=== PATIENT | female | born 1965 | race Caucasian/White ===

== ENCOUNTER 2018-01-30 08:49 | Emergency (ER) | payer OTHER ==
[2018-01-30 08:55] VITALS: BP 105/77; PULSE 81; TEMP 98.2; BMI 30.7
[2018-01-30] MEDS ORDERED: IBUPROFEN 400 MG TABLET (FP) PO ONE ×2 (09:56→10:09)
--- NOTE | 2018-01-30 10:03 | PDOC ---
History of Present Illness - General History Source: Patient Exam Limitations: Clinical Condition - History of Present Illness Initial Comments: 01/30/18 09:57 Patient with no sig Past medical history presenting with complain of vaginal bleeding soak in 4-5 packs a day for 3 days. Patient reported LMP January 16 for 5 days and started bleeding again 2 weeks after with cramping lower abdominal pain which has not been improving with Tylenol. Patient has not seen in [facility] in many years and report last past year moderate in 5 years ago. Patient denies dizziness, headache, weakness, nausea, vomiting. Patient denies any other symptoms Timing/Duration: other (3 days) <Abdirahman Islas Chandler - Last Filed: 01/30/18 16:27> <Pamela Mills - Last Filed: 01/30/18 19:34> - General Chief Complaint: Vaginal Sxs Stated Complaint: Vaginal Bleeding Time Seen by Provider: 01/30/18 09:33 Past History - Past Medical History COPD: No - Suicide/Smoking/Psychosocial Hx Smoking History: Never smoked <Abdirahman Islases - Last Filed: 01/30/18 16:27> <Pamela Mills - Last Filed: 01/30/18 19:34> - Past Medical History Allergies/Adverse Reactions: Allergies Allergy/AdvReac Type Severity Reaction Status Date / Time No Known Allergies Allergy Verified 01/30/18 08:55 Home Medications: Ambulatory Orders Ibuprofen 800 mg PO Q8H PRN #20 tablet 01/30/18 Review of Systems - Review of Systems Able to Perform ROS?: Yes Is the patient limited Irish proficient: No Constitutional: No: Chills, Fever, Weakness Respiratory: No: Symptoms reported Cardiac (ROS): No: Symptoms Reported, See HPI, Chest Pain, Edema, Irregular Heart Rate, Lightheadedness, Palpitations, Syncope, Chest Tightness, Other ABD/GI: Yes: Abdominal cramping (intermittent lower abdominal). No: Abdominal Distended, Abd. Pain w/ defecation, Blood Streaked Bowels, Constipated, Diarrhea , Difficulty Swallowing, Nausea, Poor Appetite, Poor Fluid Intake, Rectal Bleeding, Vomiting, Indigestion, Tarry Stools, Other : Yes: See HPI, Other (vaginal bleeding). No: Dysuria, Frequency, Flank Pain , Urgency Musculoskeletal: No: Back Pain, Muscle Pain, Muscle Weakness, Neck Pain Neurological: No: Headache, Unsteady Gait, Dizziness All Other Systems: Reviewed and Negative <Abdirahman Islas - Last Filed: 01/30/18 16:27> *Physical Exam - Vital Signs Last Vital Signs Temp Pulse Resp BP Pulse Ox 98.2 F 81 18 105/77 99 01/30/18 08:52 01/30/18 08:52 01/30/18 08:52 01/30/18 08:52 01/30/18 08:52 - Physical Exam Comments: 01/30/18 10:01 GENERAL: Well developed, well nourished. Awake and alert. No acute distress. CARDIOVASCULAR: Regular rate and rhythm. No murmurs, rubs, or gallops. Distal pulses are 2+ and symmetric. PULMONARY: No evidence of respiratory distress. Lungs clear to auscultation bilaterally. No wheezing, rales or rhonchi. ABDOMINAL: Soft. Non-tender. Non-distended. No rebound or guarding. No organomegaly. Normoactive bowel sounds. : small amount of dark blood in vaginal vault with clots. no active bleeding. cervical os closed SKIN: Warm and dry. No rashes. No jaundice. NEUROLOGICAL: Alert, awake, appropriate. Gait is normal without ataxia. PSYCHIATRIC: Cooperative. Good eye contact. Appropriate mood and affect. 01/30/18 10:12 General Appearance: Yes: Nourished, Appropriately Dressed. No: Apparent Distress <Abdirahman Islas - Last Filed: 01/30/18 16:27> - Vital Signs Last Vital Signs Temp Pulse Resp BP Pulse Ox 98.2 F 81 18 105/77 99 01/30/18 08:52 01/30/18 08:52 01/30/18 08:52 01/30/18 08:52 01/30/18 08:52 <Pamela Mills - Last Filed: 01/30/18 19:34> ED Treatment Course - LABORATORY CBC & Chemistry Diagram: 01/30/18 10:06 01/30/18 10:06 - RADIOLOGY Radiology Studies Ordered: Category Date Time Status TRANSVAGINAL ULTRASOUND US [US] Stat Ultrasound 01/30/18 09:54 Ordered <Abdirahman Islas - Last Filed: 01/30/18 16:27> - LABORATORY CBC & Chemistry Diagram: 01/30/18 10:06 01/30/18 10:06 - ADDITIONAL ORDERS Additional order review: Laboratory Results 01/30/18 10:06 Urine Color Yellow Urine Appearance Clear Urine pH 6.0 Ur Specific [place] 1.024 Urine Protein Negative Urine Glucose (UA) Negative Urine Ketones Trace H Urine Blood 3+ H Urine Nitrite Negative Urine Bilirubin Negative Urine Urobilinogen Negative Ur Leukocyte Esterase Negative Urine WBC (Auto) 3 Urine RBC (Auto) 65 Ur Epithelial Cells Rare Urine Mucus Few 01/30/18 10:06 RBC 4.29 MCV 88.4 MCHC 34.5 RDW 13.4 MPV 8.9 Neutrophils % 76.9 Lymphocytes % 16.2 Monocytes % 5.5 Eosinophils % 0.8 Basophils % 0.6 - Medications Given in the ED: ED Medications Discontinued Medications Generic Name Dose Route Start Last Admin Trade Name Freq PRN Reason Stop Dose Admin Ibuprofen 800 mg 01/30/18 09:56 01/30/18 10:10 Motrin - PO 01/30/18 09:57 800 mg ONCE ONE Administration <Pamela Mills - Last Filed: 01/30/18 19:34> Medical Decision Making - Medical Decision Making 01/30/18 10:02 Patient with no sig Past medical history and poor [facility] follow-up presenting with complain of three-day history of vaginal bleeding soaking 4-5 pads a day. Patient reported no history of abnormal or irregular for menstrual periods. Symptoms likely perimenopausal symptoms. CBC, CMP and urine labs ordered. Pelvic ultrasound ordered. Will consult [facility] after labs and ultrasound. 01/30/18 11:13 labs with no acute pathology. pelvic ultrasound shows mild thickended endometrium with small echogenic material in endometrium c/w clots given patient bleeding. spoke to [facility] Dr. Ortiz who indicates patient to follow-up on oupt for biopsy and does not require tx at this time due to not hemorrhaging. Plan discussed with patient. Patient agrees with plan. patient stable for discharge and follow-up instructions discussed with patient 01/30/18 11:26 <Abdirahman Islas - Last Filed: 01/30/18 16:27> - Medical Decision Making The patient was seen and evaluated in conjunction with midlevel provider under my direct supervision, ancillary studies were reviewed. I agree with the plan as outlined by MAXINE Islas 52 YOF with heavy VB, last period 01/16/18, now with recurrent VB x 3 days. exam as documented, lower AP. chaperoned PA performing the speculum exam, unremarkable except blood clot in the vault labs and lytes_wnl. UA with blood, no infection. 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 bleeding precautions, return precautions for worsening sx. 01/30/18 10:36 01/30/18 19:29 <Pamela Mills - Last Filed: 01/30/18 19:34> *DC/Admit/Observation/Transfer - Discharge Dispostion Decision to Admit order: No <Abdirahman Islas - Last Filed: 01/30/18 16:27> <Pamela Mills - Last Filed: 01/30/18 19:34> Diagnosis at time of Disposition: Perimenopausal menorrhagia - Discharge Dispostion Disposition: HOME Condition at time of disposition: Stable - Prescriptions Prescriptions: Ibuprofen 800 mg PO Q8H PRN #20 tablet PRN Reason: pain - Referrals Referrals: Alina Ortiz MD [Staff Physician] - - Patient Instructions Printed Discharge Instructions: DI for Vaginal Bleeding Additional Instructions: Use prescribed ibuprofen as needed for pain.Your symptoms is likely perimenopausal related causing abnormal menstrual. Follow-up will referred [facility] as soon as possible for posterior and possible endometrial biopsy.
[2018-01-30 10:11] LABS: BASO % 0.6 % (0-2.0); EOS % 0.8 % (0-4.5); HEMATOCRIT 37.9 % (32.4-45.2); LYMPH % 16.2 % (8-40); MCH 30.5 pg (25.7-33.7); MCHC 34.5 g/dl (32.0-36.0); MEAN CELL VOLUME 88.4 fl (80-96); MEAN PLT VOLUME 8.9 fl (7.5-11.1); MONO % 5.5 % (3.8-10.2); NEUT % 76.9 % (42.8-82.8); PLATELET COUNT 373 K/MM3 (134-434); RBC 4.29 M/mm3 (3.60-5.2); RDW 13.4 % (11.6-15.6); WHITE BLOOD COUNT 11.1 K/mm3 (4.0-10.0)
[2018-01-30 10:14] LABS: URINE APPEARANCE CLEAR; URINE BILIRUBIN NEGATIVE (<2.0 mg/dL); URINE COLOR YELLOW; URINE GLUCOSE (UA) NEGATIVE (NEGATIVE); URINE KETONE TRACE (NEGATIVE); URINE LEUK ESTERASE NEGATIVE (NEGATIVE); URINE NITRITE NEGATIVE (NEGATIVE); URINE PROTEIN NEGATIVE (NEGATIVE); URINE UROBILINOGEN NEGATIVE mg/dL (0.2-1.0)
[2018-01-30 10:17] LABS: EPI CELLS RARE /HPF (FEW); URINE MUCUS FEW
[2018-01-30 10:45] LABS: ALBUMIN 3.9 g/dl (3.4-5.0); ALK PHOS 106 U/L (45-117); ANION GAP 9 MMOL/L (8-16); BILIRUBIN,TOTAL 0.7 mg/dL (0.2-1); BLOOD UREA NITROGEN 10 mg/dL (7-18); CALCIUM 8.5 mg/dL (8.5-10.1); CHLORIDE 106 mmol/L (98-107); CO2 22 mmol/L (21-32); CREATININE 0.5 mg/dL (0.55-1.3); GLUCOSE,RANDOM 106 mg/dL (74-106); POTASSIUM 4.1 mmol/L (3.5-5.1); SGOT/AST 15 U/L (15-37); SGPT/ALT 19 U/L (13-61); SODIUM 137 mmol/L (136-145); TOT PROT 7.7 g/dl (6.4-8.2)
== END 2018-01-30 11:33 | disposition home or self-care (01) ==
LOC: JER 08:49
DX: N92.4 Excessive bleeding in the premenopausal period (principal)
CPT/HCPCS: 36415; 76830-TC; 80053; 81003; 81015; 84702; 85025; 87086; 99283-25

== ENCOUNTER 2018-10-15 23:11 | Emergency (ER) | payer OTHER ==
[2018-10-15 23:30] VITALS: TEMP 97.3; BMI 30.2
--- NOTE | 2018-10-15 23:40 | PDOC ---
History of Present Illness <Mary Gifford - Last Filed: 10/16/18 03:33> - History of Present Illness Initial Comments: 10/15/18 23:37 CHIEF COMPLAINT: L lower leg swelling HISTORY OF PRESENT ILLNESS: 52 yo F with no PMH presents to ED with left leg swelling and pain x 1 week. Patient denies any recent travel, use of hormones, or recent surgeries. Patient also c/o of headache x 1 week as well. Denies fever, chills, nausea, vomiting, diarrhea. Patient reports her legs have gotten swollen before but was told by her doctors "just to lose some weight or whatever, but now it's constantly swollen and in pain." Patient reports taking Tylenol for headache but that has not provided relief for her foot/leg. Patient does not know who her current PCP is. No recent travel or sick contacts. PAST MEDICAL HISTORY: Denies past medical history FAMILY HISTORY: blood clots SOCIAL HISTORY: Denies tobacco, alcohol, illicit drug use. SURGICAL HISTORY: Denies ALLERGIES: No known drug allergies REVIEW OF SYSTEMS General/Constitutional: Denies fever or chills. Denies weakness, weight change. HEENT: Denies change in vision. Denies ear pain or discharge. Denies sore throat. Cardiovascular: Denies chest pain or shortness of breath. Respiratory: Denies cough, wheezing, or hemoptysis. Gastrointestinal: Denies nausea, vomiting, diarrhea or constipation. Denies rectal bleeding. Genitourinary: Denies dysuria, frequency, or change in urination. Musculoskeletal: Pain and swelling to left lower extremity and foot. Skin and breasts: Denies rash or easy bruising. Neurologic: Denies headache, vertigo, loss of consciousness, or loss of sensation. PHYSICAL EXAM General Appearance: Well-appearing, appropriately dressed. No apparent distress. HEENT: EOMI, PERRLA, normal ENT inspection, normal voice, TMs normal, pharynx normal. No conjunctival pallor. No photophobia, scleral icterus. Neck: Supple. Trachea midline. No tenderness, rigidity, carotid bruit, stridor , lymphadenopathy, or thyromegaly. Respiratory/Chest: Lungs CTAB. No shortness of breath, chest tenderness, respiratory distress, accessory muscle use. No crackles, rales, rhonchi, stridor , wheezing, dullness Cardiovascular: RRR. S1, S2. No JVD, murmur, bradycardia, tachycardia. Vascular Pulses: Dorsalis-Pedis (R): 2+, Dorsalis-Pedis (L): 2+ Gastrointestinal/Abdominal: Normal bowel sounds. Abdomen soft, non-distended. No tenderness or rebound tenderness. No organomegaly, pulsatile mass, guarding , hernia, hepatomegaly, splenomegaly. Lymphatic: No adenopathy, tenderness. Musculoskeletal/Extremities: Edema and tenderness to L leg, no erythema. +calf tenderness. FROM of all extremities, normal capillary refill. Pelvis Stable. No CVA tenderness. Integumentary: Appropriate color, dry, warm. No cyanosis, erythema, jaundice or rash Neurologic: poultry process worker II-XII intact. Fully oriented, alert. Appropriate mood/affect. Motor strength 5/5. No appreciable EOM palsy, facial droop or sensory deficit. <Christianne Case - Last Filed: 10/18/18 11:37> - General Chief Complaint: Pain Stated Complaint: PAIN & SWELLING ON THE LT Time Seen by Provider: 10/15/18 23:24 Past History <Mary Gifford - Last Filed: 10/16/18 03:33> - Past Medical History COPD: No - Suicide/Smoking/Psychosocial Hx Smoking History: Never smoked Have you smoked in the past 12 months: No Information on smoking cessation initiated: No Hx Alcohol Use: No Drug/Substance Use Hx: No <Christianne Case - Last Filed: 10/18/18 11:37> - Past Medical History Allergies/Adverse Reactions: Allergies Allergy/AdvReac Type Severity Reaction Status Date / Time No Known Allergies Allergy Verified 10/15/18 23:29 Home Medications: Ambulatory Orders Ibuprofen 800 mg PO Q8H PRN #20 tablet 01/30/18 Diclofenac Sodium 75 mg PO BID #20 tablet. 10/16/18 *Physical Exam - Vital Signs Last Vital Signs Temp Pulse Resp BP Pulse Ox 97.3 F L 71 18 135/82 97 10/15/18 23:27 10/15/18 23:27 10/15/18 23:27 10/15/18 23:27 10/15/18 23:27 <Mary Gifford - Last Filed: 10/16/18 03:33> - Vital Signs Last Vital Signs Temp Pulse Resp BP Pulse Ox 97.3 F L 71 18 135/82 97 10/15/18 23:27 10/15/18 23:27 10/15/18 23:27 10/15/18 23:27 10/15/18 23:27 <Christianne Case - Last Filed: 10/18/18 11:37> ED Treatment Course - LABORATORY CBC & Chemistry Diagram: 10/16/18 01:14 10/16/18 01:14 - ADDITIONAL ORDERS Additional order review: Laboratory Results 10/16/18 10/16/18 02:00 01:14 Sodium 140 Potassium 4.4 Chloride 108 H Carbon Dioxide 28 Anion Gap 4 L BUN 12.1 Creatinine 0.6 Est GFR (CKD-EPI)AfAm 123.18 Est GFR (CKD-EPI)NonAf 106.28 Random Glucose 83 Calcium 8.3 L Total Bilirubin 0.2 AST 12 L ALT 22 Alkaline Phosphatase 102 Creatine Kinase 82 Troponin I < 0.02 Total Protein 7.4 Albumin 3.6 Serum , Qual Negative 10/16/18 01:14 RBC 3.92 MCV 83.5 MCHC 32.4 RDW 14.2 MPV 8.6 Neutrophils % 51.8 D Lymphocytes % 36.0 D Monocytes % 10.0 D Eosinophils % 1.8 D Basophils % 0.4 - Medications Given in the ED: ED Medications Discontinued Medications Generic Name Dose Route Start Last Admin Trade Name Kye PRN Reason Stop Dose Admin Ketorolac Tromethamine 30 mg 10/16/18 00:46 10/16/18 01:04 Toradol Injection - IM 10/16/18 00:47 30 mg ONCE ONE Administration <Mary Gifford - Last Filed: 10/16/18 03:33> - LABORATORY CBC & Chemistry Diagram: 10/16/18 01:14 10/16/18 01:14 <Christianne Case - Last Filed: 10/18/18 11:37> Medical Decision Making - Medical Decision Making 10/15/18 23:40 52 yo F with no PMH presents to ED with left leg swelling and pain x 1 week. US ordered to eval for DVT. 10/16/18 01:39 Toradol given for pain control. US negative for DVT. Will send labs to r/o infectious etiology. Labs negative. Pt continues to c/o pain to leg. Patient signed out to Dr. Gifford. Awaiting CT. <Christianne Case - Last Filed: 10/18/18 11:37> *DC/Admit/Observation/Transfer <Gifford,Mary - Last Filed: 10/16/18 03:33> - Discharge Dispostion Decision to Admit order: No <Christianne Case - Last Filed: 10/18/18 11:37> Diagnosis at time of Disposition: Leg pain, left - Discharge Dispostion Disposition: HOME Condition at time of disposition: Stable - Prescriptions Prescriptions: Diclofenac Sodium 75 mg PO BID #20 tablet.dr - Referrals Referrals: Edward Lucas MD [Staff Physician] -
[2018-10-16] MEDS ORDERED: KETOROLAC TROMETHAMINE 30 MG/1 ML VIAL IM ONE (00:46)
[2018-10-16] MEDS ORDERED: KETOROLAC TROMETHAMINE 30 MG/1 ML VIAL ONE (00:58)
[2018-10-16 01:20] LABS: BASO % 0.4 % (0-2.0); EOS % 1.8 % (0-4.5); HEMATOCRIT 32.7 % (32.4-45.2); HEMOGLOBIN 10.6 GM/dL (10.7-15.3); MCH 27.1 pg (25.7-33.7); MCHC 32.4 g/dl (32.0-36.0); MEAN CELL VOLUME 83.5 fl (80-96); MEAN PLT VOLUME 8.6 fl (7.5-11.1); NEUT % 51.8 % (42.8-82.8); PLATELET COUNT 398 K/MM3 (134-434); RBC 3.92 M/mm3 (3.60-5.2); RDW 14.2 % (11.6-15.6)
--- NOTE | 2018-10-16 01:47 | PDOC ---
*Physical Exam - Vital Signs Last Vital Signs Temp Pulse Resp BP Pulse Ox 97.3 F L 71 18 135/82 97 10/15/18 23:27 10/15/18 23:27 10/15/18 23:27 10/15/18 23:27 10/15/18 23:27 ED Treatment Course - LABORATORY CBC & Chemistry Diagram: 10/16/18 01:14 10/16/18 01:14 - ADDITIONAL ORDERS Additional order review: 10/16/18 01:14 RBC 3.92 MCV 83.5 MCHC 32.4 RDW 14.2 MPV 8.6 Neutrophils % 51.8 D Lymphocytes % 36.0 D Monocytes % 10.0 D Eosinophils % 1.8 D Basophils % 0.4 - Medications Given in the ED: ED Medications Discontinued Medications Generic Name Dose Route Start Last Admin Trade Name Kye PRN Reason Stop Dose Admin Ketorolac Tromethamine 30 mg 10/16/18 00:46 10/16/18 01:04 Toradol Injection - IM 10/16/18 00:47 30 mg ONCE ONE Administration Medical Decision Making - Medical Decision Making 10/16/18 01:46 Patient Name: ORQUIDEA HAMLIN THIS IS A PRELIMINARY REPORT FROM [facility] DATE OF SERVICE: 2018-10-15 23:48:13 IMAGES: 21 EXAM: VENOUS DUPLEX UNILATERAL No evidence for DVT left lower extremity. 10/16/18 02:09 CBC and chem are normal 10/16/18 02:21 beta negative; pt will be sent for a CT abd with bilat leg runoff. 10/16/18 04:08 Patient Name: ORQUIDEA HAMLIN THIS IS A PRELIMINARY REPORT FROM [facility] DATE OF SERVICE: 2018-10-16 02:17:33 IMAGES: [id number] EXAM: CTA ABDOMEN AND PELVIS and CTA LOWER EXTREMITY (LEFT) and CTA LOWER EXTREMITY (RIGHT) ABDOMEN Asymmetrically enlarged left common femoral vein. Contrast timing not optimized to assess for DVT, therefore advise ultrasound to assess for possible acute or chronic thrombus. 1.9 x 1.1 cm hypodensity in endometrial stripe, advise ultrasound correlation. Patent aorta and main branches. No atherosclerotic calcifications. No bowel obstruction, colitis, free fluid or free air. Normal appendix. Unremarkable pancreas, kidneys and gallbladder. 3.3 cm left ovarian cyst versus normal ovarian parenchyma. 2.7 cm left ovarian cyst. LOWER EXTREMITY (RIGHT) Patent lower extremity main arteries and branches to level of forefoot. Small knee effusion. LOWER EXTREMITY (LEFT) Patent lower extremity main arteries and branches to level of forefoot. Small knee effusion 10/16/18 04:12 Case d/w radiologist who agrees that with the normal sono that rules out DVT in the left leg, pt likely doesn't have a blood clot. 10/16/18 04:23 I advised patient that a sono for DVT eval is 92% sensitive and that if she repeats a DVT sonogram study in a week's time, the sensitivity goes up to 98%, so I recommend that she get a repeat sono in 1 week and that she return sooner for worsening swelling. She will follow with [facility] by her home. *DC/Admit/Observation/Transfer Diagnosis at time of Disposition: Leg pain, left - Discharge Dispostion Disposition: HOME Condition at time of disposition: Stable - Prescriptions Prescriptions: Diclofenac Sodium 75 mg PO BID #20 tablet.dr - Referrals Referrals: Edward Lucas MD [Staff Physician] - - Patient Instructions - Post Discharge Activity
[2018-10-16 01:48] LABS: ALBUMIN 3.6 g/dl (3.4-5.0); ALK PHOS 102 U/L (45-117); ANION GAP 4 MMOL/L (8-16); BILIRUBIN,TOTAL 0.2 mg/dL (0.2-1); BLOOD UREA NITROGEN 12.1 mg/dL (7-18); CALCIUM 8.3 mg/dL (8.5-10.1); CHLORIDE 108 mmol/L (98-107); CO2 28 mmol/L (21-32); CREATININE 0.6 mg/dL (0.55-1.3); GLUCOSE,RANDOM 83 mg/dL (74-106); POTASSIUM 4.4 mmol/L (3.5-5.1); SGOT/AST 12 U/L (15-37); SGPT/ALT 22 U/L (13-61); SODIUM 140 mmol/L (136-145); TOT PROT 7.4 g/dl (6.4-8.2)
[2018-10-16 04:06] VITALS: BP 128/78; PULSE 80
== END 2018-10-16 04:06 | disposition home or self-care (01) ==
LOC: JER 23:11
PROC: 3E0233Z Introduction of Anti-inflammatory into Muscle, Percutaneous Approach (ICD-10-PCS; principal; 2018-10-15)
DX: M79.605 Pain in left leg (principal)
CPT/HCPCS: 36415; 75635-TC; 80053; 82550; 84484; 84703; 85025; 93971-TC; 99284-25

== ENCOUNTER 2021-09-12 06:23 | Emergency (ER) | payer OTHER ==
[2021-09-12 06:45] VITALS: BP 121/83; PULSE 85; TEMP 98; BMI 29.2
[2021-09-12] MEDS ORDERED: IBUPROFEN 600 MG TABLET (FP) PO ONE ×2 (07:35→07:37)
== END 2021-09-12 09:26 | disposition home or self-care (01) ==
LOC: JER 06:23
DX: J06.9 Acute upper respiratory infection, unspecified (principal)
CPT/HCPCS: 0241U-QW; 71046-TC-FY; 99284-25

== ENCOUNTER 2023-04-01 02:43 | Emergency (ER) | payer OTHER ==
[2023-04-01 03:00] VITALS: BP 138/88; PULSE 92; RESP 20; TEMP 98.3; BMI 34.0
[2023-04-01] MEDS ORDERED: ACETAMINOPHEN 1000 MG/100 ML BAG IVPB ONE (03:44)
[2023-04-01] MEDS ORDERED: ACETAMINOPHEN INJECTION 100 ML IVPB ONE (03:55)
[2023-04-01 04:01] LABS: URINE APPEARANCE Clear; URINE BILIRUBIN Negative (NEGATIVE); URINE COLOR Yellow; URINE GLUCOSE (UA) Negative (NEGATIVE); URINE KETONE Negative (NEGATIVE); URINE LEUK ESTERASE Trace (NEGATIVE); URINE NITRITE Negative (NEGATIVE); URINE PROTEIN Negative (NEGATIVE); URINE UROBILINOGEN 0.2 mg/dL (0.2-1.0)
[2023-04-01 04:04] LABS: URINE RBC 7.9 /uL (0-23.9); URINE WBC 46.9 /uL (0-25.8)
[2023-04-01 04:05] LABS: EPI CELLS 56.9 /uL (0-25.1); HYALINE CASTS 1.18 /uL (0-3.1); URINE BACTERIA 489.1 /uL (0-1359)
[2023-04-01 04:38] LABS: BASO % 0.3 % (0-2.0); EOS % 1.8 % (0-4.5); HEMATOCRIT 43.3 % (32.4-45.2); LYMPH % 17.8 % (8-40); MCH 28.3 pg (25.7-33.7); MCHC 32.4 g/dl (32.0-36.0); MEAN CELL VOLUME 87.4 fl (80-96); MEAN PLT VOLUME 9.2 fl (7.5-11.1); MONO % 6.7 % (3.8-10.2); NEUT % 73.4 % (42.8-82.8); PLATELET COUNT 362 10^3/uL (134-434); RBC 4.95 M/mm3 (3.60-5.2); RDW 13.4 % (11.6-15.6); WHITE BLOOD COUNT 11.4 K/mm3 (4.0-10.0)
[2023-04-01 04:55] LABS: POTASSIUM 4.5 mmol/L (3.5-5.1)
[2023-04-01 04:57] LABS: CALCIUM 9.2 mg/dL (8.5-10.1)
[2023-04-01 04:58] LABS: ALBUMIN 3.7 g/dl (3.4-5.0); BLOOD UREA NITROGEN 14.1 mg/dL (7-18)
[2023-04-01 05:01] LABS: CREATININE 0.7 mg/dL (0.55-1.3)
[2023-04-01 05:02] LABS: BILIRUBIN,TOTAL 0.7 mg/dL (0.2-1); TOT PROT 7.6 g/dl (6.4-8.2)
[2023-04-01] MEDS ORDERED: ONDANSETRON 4 MG/2 ML VIAL IVPUSH ONE (06:09)
[2023-04-01] MEDS ORDERED: SODIUM CHLORIDE 0.9% 500 ML INFUS.BAG IV ONE (06:09)
[2023-04-01] MEDS ORDERED: ONDANSETRON 4 MG/2 ML VIAL ONE (06:11)
== END 2023-04-01 10:29 | disposition home or self-care (01) ==
LOC: JER 02:43
PROC: 3E033NZ Introduction of Analgesics, Hypnotics, Sedatives into Peripheral Vein, Percutaneous Approach (ICD-10-PCS; principal; 2023-04-01)
PROC: 3E033GC Introduction of Other Therapeutic Substance into Peripheral Vein, Percutaneous Approach (ICD-10-PCS; 2023-04-01)
DX: R10.30 Lower abdominal pain, unspecified (principal); R11.2 Nausea with vomiting, unspecified; K57.92 Diverticulitis of intestine, part unspecified, without perforation or abscess without bleeding
CPT/HCPCS: 36415; 74177-TC; 80053; 81003; 83605; 85025; 87086; 93005; 93010; 99285-25; Q9967

== ENCOUNTER 2023-10-09 19:53 | Emergency (ER) | payer OTHER ==
[2023-10-09 20:02] VITALS: BP 111/85; PULSE 90; RESP 16; TEMP 98.2; BMI 34.0
[2023-10-09] MEDS: ACETAMINOPHEN 325 MG TABLET (FP) PO ONE (20:29)
[2023-10-09] MEDS ORDERED: ACETAMINOPHEN 325 MG TABLET (FP) ONE (20:30)
[2023-10-09 22:24] LABS: BASO % 0.5 % (0-2.0); EOS % 3.7 % (0-4.5); HEMATOCRIT 38.8 % (32.4-45.2); HEMOGLOBIN 13.1 GM/dL (10.7-15.3); LYMPH % 33.6 % (8-40); MCH 29.2 pg (25.7-33.7); MCHC 33.7 g/dl (32.0-36.0); MEAN CELL VOLUME 86.7 fl (80-96); MEAN PLT VOLUME 8.5 fl (7.5-11.1); MONO % 7.6 % (3.8-10.2); NEUT % 54.6 % (42.8-82.8); PLATELET COUNT 332 10^3/uL (134-434); RBC 4.48 M/mm3 (3.60-5.2); RDW 13.5 % (11.6-15.6); WHITE BLOOD COUNT 7.9 K/mm3 (4.0-10.0)
[2023-10-09 22:47] LABS: POTASSIUM 4.3 mmol/L (3.5-5.1)
[2023-10-09 22:49] LABS: ALBUMIN 3.8 g/dl (3.4-5.0); CALCIUM 9.3 mg/dL (8.5-10.1)
[2023-10-09 22:50] LABS: BLOOD UREA NITROGEN 16.4 mg/dL (7-18)
[2023-10-09 22:53] LABS: CREATININE 0.9 mg/dL (0.55-1.3)
[2023-10-09 22:54] LABS: BILIRUBIN,TOTAL 0.4 mg/dL (0.2-1); TOT PROT 7.6 g/dl (6.4-8.2)
== END 2023-10-10 02:28 | disposition home or self-care (01) ==
LOC: JER 19:53
DX: L03.116 Cellulitis of left lower limb (principal); M79.89 Other specified soft tissue disorders; R20.0 Anesthesia of skin; M79.662 Pain in left lower leg
CPT/HCPCS: 36415; 73706-TC-RT; 80053; 85025; 93971-TC; 99284-25; Q9967

== ENCOUNTER 2023-10-27 05:10 | Inpatient (IN) | payer OTHER ==
[2023-10-27] MEDS ORDERED: LIDOCAINE HCL 1%, 10 MG/ML (20ML VIAL) ONE (07:51)
[2023-10-27] MEDS ORDERED: PROPOFOL 20 ML ONE (09:13)
[2023-10-27] MEDS ORDERED: DEXMEDETOMIDINE HCL 200 MCG/2 ML IVPB ONE (10:17)
[2023-10-27] MEDS ORDERED: MIDAZOLAM HCL 2 MG/2 ML SINGLE DOSE VIAL ONE ×2 (10:22→10:26)
[2023-10-27] MEDS: ceFAZolin SODIUM 1 GM VIAL IVPB ONE (10:28)
[2023-10-27] MEDS ORDERED: HEPARIN NA (PORCINE) 5,000 UNITS/ML 1ML VIAL ONE (10:29)
[2023-10-27] MEDS: LIDOCAINE HCL 1%, 10 MG/ML (20ML VIAL) INF ONE (10:34)
[2023-10-27] MEDS ORDERED: ONDANSETRON 4 MG/2 ML VIAL ONE (11:36)
[2023-10-27] MEDS ORDERED: HEPARIN NA (PORCINE) 5,000 UNITS/ML 1ML VIAL IVPUSH PRN (11:49)
[2023-10-27] MEDS ORDERED: ONDANSETRON 4 MG/2 ML VIAL IVPUSH PRN (11:51)
[2023-10-27] MEDS ORDERED: HEPARIN INFUSION - 25,000 UNITS/500 ML INFUS.BAG IVPB ONE (12:08)
[2023-10-27] MEDS ORDERED: ACETAMINOPHEN INJECTION 100 ML IVPB ONE (12:08)
[2023-10-27] MEDS: ACETAMINOPHEN 1000 MG/100 ML BAG IVPB ONE (12:16)
[2023-10-27] MEDS: HEPARIN INFUSION - 25,000 UNITS/500 ML INFUS.BAG IVPB SCH (12:22)
[2023-10-27] MEDS: LACTATED RINGERS SOLUTION 1,000 ML IV SCH (13:56)
[2023-10-27] MEDS: oxyCODONE HCL 5 MG TABLET PO PRN (16:36)
[2023-10-27] MEDS: DEXTROSE 5%-0.45% SALINE 1,000 ML IV SCH (21:33)
[2023-10-28] MEDS: RIVAROXABAN 10 MG TABLET PO SCH (09:51)
[2023-10-28 10:17] LABS: HEMATOCRIT 33.3 % (32.4-45.2); HEMOGLOBIN 11.2 GM/dL (10.7-15.3); MCH 29.3 pg (25.7-33.7); MCHC 33.7 g/dl (32.0-36.0); MEAN CELL VOLUME 86.8 fl (80-96); MEAN PLT VOLUME 9.1 fl (7.5-11.1); PLATELET COUNT 237 10^3/uL (134-434); RBC 3.84 M/mm3 (3.60-5.2); RDW 13.4 % (11.6-15.6); WHITE BLOOD COUNT 13.4 K/mm3 (4.0-10.0)
[2023-10-28 10:33] LABS: POTASSIUM 4.6 mmol/L (3.5-5.1)
[2023-10-28 10:40] LABS: CALCIUM 7.9 mg/dL (8.5-10.1)
[2023-10-28 10:43] LABS: CREATININE 3.1 mg/dL (0.55-1.3)
[2023-10-28 12:33] LABS: INR 1.51 (0.83-1.09); PROTHROMBIN TIME (PATIENT) 17.2 SEC (9.7-13.0)
[2023-10-28 12:36] LABS: ACTIVATED PTT 66.3 SECONDS (25.2-36.5)
[2023-10-28] MEDS: DEXTROSE 5%-0.45% SALINE 1,000 ML IV SCH (13:09)
[2023-10-28] MEDS: DEXTROSE 5%-NORMAL SALINE 1,000 ML IV SCH (15:00)
[2023-10-28 16:05] LABS: URINE APPEARANCE CLOUDY; URINE BILIRUBIN NEGATIVE (NEGATIVE); URINE COLOR YELLOW; URINE GLUCOSE (UA) NEGATIVE (NEGATIVE); URINE KETONE NEGATIVE (NEGATIVE); URINE LEUK ESTERASE NEGATIVE (NEGATIVE); URINE NITRITE NEGATIVE (NEGATIVE); URINE PROTEIN 1+ (NEGATIVE); URINE UROBILINOGEN 0.2 mg/dL (0.2-1.0)
[2023-10-28 18:07] LABS: EPI CELLS 42.2 /uL (0-25.1); URINE RBC 119.8 /uL (0-23.9); URINE WBC 13.1 /uL (0-25.8)
[2023-10-28 18:08] LABS: HYALINE CASTS 1.46 /uL (0-3.1); URINE BACTERIA 95.8 /uL (0-1359)
[2023-10-29] MEDS: ACETAMINOPHEN 325 MG TABLET (FP) PO ONE (00:02)
[2023-10-29] MEDS: SODIUM CHLORIDE 1,000 ML IV SCH (01:24)
[2023-10-29 10:26] LABS: HEMATOCRIT 28.7 % (32.4-45.2); HEMOGLOBIN 9.5 GM/dL (10.7-15.3); MCHC 33.1 g/dl (32.0-36.0); MEAN CELL VOLUME 87.9 fl (80-96); MEAN PLT VOLUME 8.9 fl (7.5-11.1); PLATELET COUNT 186 10^3/uL (134-434); RBC 3.26 M/mm3 (3.60-5.2); RDW 13.4 % (11.6-15.6); WHITE BLOOD COUNT 11.1 K/mm3 (4.0-10.0)
[2023-10-29 10:33] LABS: INR 1.23 (0.83-1.09); PROTHROMBIN TIME (PATIENT) 13.8 SEC (9.7-13.0)
[2023-10-29 10:47] LABS: POTASSIUM 4.8 mmol/L (3.5-5.1)
[2023-10-29 10:52] LABS: CALCIUM 8.2 mg/dL (8.5-10.1)
[2023-10-29 10:53] LABS: BLOOD UREA NITROGEN 38.3 mg/dL (7-18)
[2023-10-29 10:56] LABS: CREATININE 5.3 mg/dL (0.55-1.3)
[2023-10-29 10:58] LABS: BILIRUBIN,TOTAL 0.6 mg/dL (0.2-1); TOT PROT 5.8 g/dl (6.4-8.2)
[2023-10-29] MEDS: DOCUSATE SODIUM 100 MG CAPSULE (FP) PO SCH (13:08)
[2023-10-29] MEDS: POLYETHYLENE GLYCOL (HEALTHYLAX) 3350 17 GM PACKET PO SCH (13:08)
[2023-10-29 16:21] LABS: EPI CELLS 13 /uL (0-25.1); HYALINE CASTS 0 /uL (0-3.1); PH,URINE 6.5 (5.0-8.0); URINE APPEARANCE CLEAR; URINE BACTERIA 8 /uL (0-1359); URINE BILIRUBIN NEGATIVE (NEGATIVE); URINE COLOR YELLOW; URINE GLUCOSE (UA) NEGATIVE (NEGATIVE); URINE KETONE NEGATIVE (NEGATIVE); URINE LEUK ESTERASE NEGATIVE (NEGATIVE); URINE NITRITE NEGATIVE (NEGATIVE); URINE PROTEIN NEGATIVE (NEGATIVE); URINE RBC 9 /uL (0-23.9); URINE UROBILINOGEN 0.2 mg/dL (0.2-1.0); URINE WBC 21 /uL (0-25.8)
[2023-10-29] MEDS: ACETAMINOPHEN 325 MG TABLET (FP) PO PRN (16:54)
[2023-10-29] MEDS: ONDANSETRON *ODT* 4 MG TABLET SL PRN (17:38)
[2023-10-30] MEDS: ASPIRIN 81 MG CHEWABLE TABLETS PO ONE (06:56)
[2023-10-30] MEDS ORDERED: SODIUM CHLORIDE 1,000 ML IV SCH (08:16)
[2023-10-30 09:41] LABS: BASO % 0.3 % (0-2.0); HEMATOCRIT 29.1 % (32.4-45.2); HEMOGLOBIN 9.7 GM/dL (10.7-15.3); LYMPH % 9.6 % (8-40); MCH 29.2 pg (25.7-33.7); MCHC 33.5 g/dl (32.0-36.0); MEAN CELL VOLUME 87.3 fl (80-96); MEAN PLT VOLUME 9.5 fl (7.5-11.1); MONO % 8.1 % (3.8-10.2); PLATELET COUNT 205 10^3/uL (134-434); RBC 3.33 M/mm3 (3.60-5.2); RDW 13.3 % (11.6-15.6); WHITE BLOOD COUNT 12.1 K/mm3 (4.0-10.0)
[2023-10-30] MEDS: HEPARIN NA (PORCINE) 5,000 UNITS/ML 1ML VIAL IVPUSH PRN (10:27)
[2023-10-30] MEDS: rOPINIRole HCL 2 MG TABLET (FP) PO SCH (10:27)
[2023-10-30 10:46] LABS: POTASSIUM 4.8 mmol/L (3.5-5.1)
[2023-10-30 10:47] LABS: ALBUMIN 3.1 g/dl (3.4-5.0); BILIRUBIN,TOTAL 0.8 mg/dL (0.2-1); CALCIUM 8.3 mg/dL (8.5-10.1)
[2023-10-30 11:20] LABS: MAGNESIUM 2.1 mg/dL (1.8-2.4); PHOSPHOROUS 3.4 mg/dL (2.5-4.9); TOT PROT 6.2 g/dl (6.4-8.2)
[2023-10-30] MEDS: amLODIPine BESYLATE 2.5 MG TABLET (FP) PO ONE (11:37)
[2023-10-30] MEDS: SODIUM CHLORIDE 1,000 ML IV SCH (14:04)
[2023-10-30] MEDS: LIDOCAINE 5% TOPICAL PATCH TP SCH (17:02)
[2023-10-30 18:02] LABS: INR 1.17 (0.83-1.09); PROTHROMBIN TIME (PATIENT) 13.4 SEC (9.7-13.0)
[2023-10-30 18:04] LABS: ACTIVATED PTT 52.7 SECONDS (25.2-36.5)
[2023-10-30] MEDS: LORazepam 0.5 MG TABLET PO PRN (18:21)
[2023-10-30] MEDS: MELATONIN 5 MG TABLETS PO PRN (22:12)
[2023-10-30] MEDS: LIDOCAINE PATCH REMOVAL MC SCH (22:12)
[2023-10-31 00:14] LABS: EPI CELLS >36 /uL (0-25.1); HYALINE CASTS 0 /uL (0-3.1); URINE APPEARANCE CLEAR; URINE BACTERIA 23 /uL (0-1359); URINE BILIRUBIN NEGATIVE (NEGATIVE); URINE COLOR YELLOW; URINE GLUCOSE (UA) NEGATIVE (NEGATIVE); URINE KETONE NEGATIVE (NEGATIVE); URINE LEUK ESTERASE NEGATIVE (NEGATIVE); URINE NITRITE NEGATIVE (NEGATIVE); URINE PROTEIN NEGATIVE (NEGATIVE); URINE RBC 24 /uL (0-23.9); URINE UROBILINOGEN 0.2 mg/dL (0.2-1.0); URINE WBC 15 /uL (0-25.8)
[2023-10-31] MEDS: amLODIPine BESYLATE 5 MG TABLET (FP) PO SCH (06:14)
[2023-10-31 08:17] LABS: HEMATOCRIT 31.2 % (32.4-45.2); HEMOGLOBIN 10.3 GM/dL (10.7-15.3); MCH 29.1 pg (25.7-33.7); MEAN PLT VOLUME 9.4 fl (7.5-11.1); PLATELET COUNT 268 10^3/uL (134-434); RBC 3.54 M/mm3 (3.60-5.2); RDW 13.8 % (11.6-15.6); WHITE BLOOD COUNT 14.2 K/mm3 (4.0-10.0)
[2023-10-31 08:58] LABS: POTASSIUM 4.8 mmol/L (3.5-5.1)
[2023-10-31 09:00] LABS: CALCIUM 8.2 mg/dL (8.5-10.1)
[2023-10-31 09:01] LABS: ALBUMIN 3.2 g/dl (3.4-5.0); BLOOD UREA NITROGEN 38.7 mg/dL (7-18)
[2023-10-31 09:04] LABS: CREATININE 6.5 mg/dL (0.55-1.3)
[2023-10-31 09:05] LABS: BILIRUBIN,TOTAL 0.8 mg/dL (0.2-1); TOT PROT 6.4 g/dl (6.4-8.2)
[2023-10-31] MEDS: FUROSEMIDE 40 MG TABLET (FP) PO ONE (11:51)
[2023-10-31] MEDS: FUROSEMIDE 40 MG/4 ML INJECTABLE VIAL IVPUSH ONE ×3 (12:45→18:20)
[2023-10-31] MEDS: ONDANSETRON 4 MG/2 ML VIAL IVPUSH ONE (13:47)
[2023-10-31] MEDS: ALBUTEROL SO4 2.5/IPRATROPIUM 0.5 INH SOL 3 ML VIAL.NEB. NEB ONE (15:33)
[2023-10-31 19:54] LABS: CALCIUM 8.3 mg/dL (8.5-10.1)
[2023-10-31 19:55] LABS: BLOOD UREA NITROGEN 39.3 mg/dL (7-18)
[2023-10-31 19:57] LABS: PHOSPHOROUS 4.5 mg/dL (2.5-4.9)
[2023-10-31 19:58] LABS: CREATININE 6.7 mg/dL (0.55-1.3)
[2023-10-31 20:15] LABS: POTASSIUM 4.6 mmol/L (3.5-5.1)
[2023-10-31] MEDS ORDERED: FUROSEMIDE 40 MG/4 ML INJECTABLE VIAL IVPUSH ONE (21:00)
[2023-11-01] MEDS: ALBUTEROL SO4 2.5/IPRATROPIUM 0.5 INH SOL 3 ML VIAL.NEB. NEB PRN (07:20)
[2023-11-01 07:56] LABS: HEMOGLOBIN 10.3 GM/dL (10.7-15.3); MCH 29.9 pg (25.7-33.7); MCHC 34.2 g/dl (32.0-36.0); MEAN CELL VOLUME 87.6 fl (80-96); MEAN PLT VOLUME 9.1 fl (7.5-11.1); PLATELET COUNT 297 10^3/uL (134-434); RBC 3.43 M/mm3 (3.60-5.2); RDW 13.4 % (11.6-15.6); WHITE BLOOD COUNT 10.5 K/mm3 (4.0-10.0)
[2023-11-01 08:06] LABS: POTASSIUM 4.5 mmol/L (3.5-5.1)
[2023-11-01 08:14] LABS: CALCIUM 8.7 mg/dL (8.5-10.1)
[2023-11-01 08:15] LABS: BLOOD UREA NITROGEN 41.9 mg/dL (7-18)
[2023-11-01 08:19] LABS: TOT PROT 6.4 g/dl (6.4-8.2)
[2023-11-01 08:21] LABS: CREATININE 6.7 mg/dL (0.55-1.3)
[2023-11-01 08:22] LABS: BILIRUBIN,TOTAL 0.7 mg/dL (0.2-1)
[2023-11-01] MEDS: FUROSEMIDE 40 MG/4 ML INJECTABLE VIAL IVPUSH ONE (08:49)
[2023-11-01 13:51] VITALS: BMI 37.8
[2023-11-01] MEDS: ONDANSETRON 4 MG/2 ML VIAL IVPUSH PRN (18:40)
[2023-11-01 19:08] LABS: ANTIGLOMERULAR BASEMENT MEN.AB <0.2 units (0.0-0.9)
[2023-11-02 07:45] LABS: HEMATOCRIT 31.9 % (32.4-45.2); HEMOGLOBIN 10.6 GM/dL (10.7-15.3); MCH 29.2 pg (25.7-33.7); MCHC 33.2 g/dl (32.0-36.0); MEAN PLT VOLUME 9.1 fl (7.5-11.1); PLATELET COUNT 346 10^3/uL (134-434); RBC 3.63 M/mm3 (3.60-5.2); RDW 13.1 % (11.6-15.6); WHITE BLOOD COUNT 10.5 K/mm3 (4.0-10.0)
[2023-11-02 08:20] LABS: POTASSIUM 4.4 mmol/L (3.5-5.1)
[2023-11-02 08:22] LABS: CALCIUM 8.9 mg/dL (8.5-10.1)
[2023-11-02 08:25] LABS: CREATININE 6.9 mg/dL (0.55-1.3)
[2023-11-02 08:27] LABS: BILIRUBIN,TOTAL 0.5 mg/dL (0.2-1); TOT PROT 6.5 g/dl (6.4-8.2)
[2023-11-02] MEDS: FUROSEMIDE 40 MG/4 ML INJECTABLE VIAL IVPUSH SCH (09:01)
[2023-11-02] MEDS ORDERED: amLODIPine BESYLATE 10 MG TABLET (FP) PO SCH (09:40)
[2023-11-02] MEDS: amLODIPine BESYLATE 5 MG TABLET (FP) PO ONE (10:03)
[2023-11-02] MEDS ORDERED: ONDANSETRON 4 MG/2 ML VIAL IVPUSH PRN (11:18)
[2023-11-02] MEDS: METOCLOPRAMIDE HCL INJECTION 10 MG/2 ML VIAL IVPUSH SCH (11:30)
[2023-11-02] MEDS: APIXABAN 5 MG TABLET PO SCH (11:40)
[2023-11-02] MEDS ORDERED: MELATONIN 5 MG TABLETS PO PRN (15:33)
[2023-11-02] MEDS ORDERED: ALBUTEROL SO4 2.5/IPRATROPIUM 0.5 INH SOL 3 ML VIAL.NEB. NEB PRN (15:33)
[2023-11-02] MEDS ORDERED: LORazepam 0.5 MG TABLET PO PRN (15:33)
[2023-11-02 16:09] LABS: C-ANCA <1:20 titer (Neg:<1:20)
[2023-11-03] MEDS: oxyCODONE HCL 5 MG TABLET PO PRN (04:40)
[2023-11-03] MEDS: POLYETHYLENE GLYCOL (HEALTHYLAX) 3350 17 GM PACKET PO SCH (07:57)
[2023-11-03] MEDS: DOCUSATE SODIUM 100 MG CAPSULE (FP) PO SCH (07:57)
[2023-11-03] MEDS: LIDOCAINE PATCH REMOVAL MC SCH (07:58)
[2023-11-03 08:43] LABS: HEMATOCRIT 30.3 % (32.4-45.2); HEMOGLOBIN 10.5 GM/dL (10.7-15.3); MCH 29.7 pg (25.7-33.7); MCHC 34.5 g/dl (32.0-36.0); MEAN CELL VOLUME 86.1 fl (80-96); MEAN PLT VOLUME 8.8 fl (7.5-11.1); PLATELET COUNT 408 10^3/uL (134-434); RBC 3.52 M/mm3 (3.60-5.2); RDW 13.9 % (11.6-15.6)
[2023-11-03 09:10] LABS: POTASSIUM 4.2 mmol/L (3.5-5.1)
[2023-11-03 09:24] LABS: ALBUMIN 3.2 g/dl (3.4-5.0); BLOOD UREA NITROGEN 53.3 mg/dL (7-18); CALCIUM 8.9 mg/dL (8.5-10.1); MAGNESIUM 2.6 mg/dL (1.8-2.4)
[2023-11-03 09:28] LABS: CREATININE 6.8 mg/dL (0.55-1.3); PHOSPHOROUS 5.6 mg/dL (2.5-4.9)
[2023-11-03 09:29] LABS: BILIRUBIN,TOTAL 0.6 mg/dL (0.2-1); TOT PROT 6.8 g/dl (6.4-8.2)
[2023-11-03] MEDS: rOPINIRole HCL 2 MG TABLET (FP) PO SCH (10:12)
[2023-11-03] MEDS: amLODIPine BESYLATE 10 MG TABLET (FP) PO SCH (10:12)
[2023-11-03] MEDS: LIDOCAINE 5% TOPICAL PATCH TP SCH (10:14)
[2023-11-04] MEDS: ACETAMINOPHEN 325 MG TABLET (FP) PO PRN (06:24)
[2023-11-04 08:11] LABS: HEMATOCRIT 31.2 % (32.4-45.2); HEMOGLOBIN 10.3 GM/dL (10.7-15.3); MCH 28.9 pg (25.7-33.7); MCHC 33.1 g/dl (32.0-36.0); MEAN CELL VOLUME 87.5 fl (80-96); MEAN PLT VOLUME 8.4 fl (7.5-11.1); PLATELET COUNT 419 10^3/uL (134-434); RBC 3.56 M/mm3 (3.60-5.2); RDW 13.6 % (11.6-15.6); WHITE BLOOD COUNT 11.8 K/mm3 (4.0-10.0)
[2023-11-04 08:27] LABS: POTASSIUM 4.2 mmol/L (3.5-5.1)
[2023-11-04 08:31] LABS: ALBUMIN 3.2 g/dl (3.4-5.0); BLOOD UREA NITROGEN 59.1 mg/dL (7-18); CALCIUM 8.9 mg/dL (8.5-10.1); MAGNESIUM 2.5 mg/dL (1.8-2.4)
[2023-11-04 08:34] LABS: CREATININE 6.7 mg/dL (0.55-1.3); PHOSPHOROUS 6.1 mg/dL (2.5-4.9)
[2023-11-04 08:35] LABS: BILIRUBIN,TOTAL 0.5 mg/dL (0.2-1); TOT PROT 6.9 g/dl (6.4-8.2)
[2023-11-04] MEDS: CALCIUM ACETATE 667 MG CAPSULE (FP) PO SCH (17:23)
[2023-11-04 22:48] VITALS: RESP 20
[2023-11-05 07:37] VITALS: TEMP 98.4
[2023-11-05 08:33] LABS: HEMATOCRIT 33.1 % (32.4-45.2); HEMOGLOBIN 11.1 GM/dL (10.7-15.3); MCH 29.1 pg (25.7-33.7); MCHC 33.6 g/dl (32.0-36.0); MEAN CELL VOLUME 86.5 fl (80-96); MEAN PLT VOLUME 8.4 fl (7.5-11.1); PLATELET COUNT 474 10^3/uL (134-434); RBC 3.83 M/mm3 (3.60-5.2); RDW 13.7 % (11.6-15.6); WHITE BLOOD COUNT 11.4 K/mm3 (4.0-10.0)
[2023-11-05 08:50] LABS: POTASSIUM 4.5 mmol/L (3.5-5.1)
[2023-11-05 08:54] LABS: CALCIUM 9.3 mg/dL (8.5-10.1)
[2023-11-05 08:55] LABS: MAGNESIUM 2.7 mg/dL (1.8-2.4)
[2023-11-05 08:57] LABS: PHOSPHOROUS 7.1 mg/dL (2.5-4.9)
[2023-11-05 09:48] LABS: ANISOCYTOSIS 1+; MACROCYTOSIS 0
[2023-11-05 09:54] LABS: PLATELET ESTIMATE SLT INCREASE
[2023-11-05 11:02] VITALS: BP 155/94; PULSE 74
[2023-11-06] MEDS ORDERED: rOPINIRole HCL 2 MG TABLET (FP) PO SCH (22:00)
[2023-11-06 22:06] LABS: DRVVT - 35.4 sec (0.0-47.0)
== END 2023-11-05 13:57 | disposition home or self-care (01) | DRG 270 ==
LOC: JASU-SURG 05:10 → JASUSAT 05:10 → J8W 13:45 → JASUSAT 10-28 15:32 → J8W 10-28 18:09 → JICU 10-31 14:55 → J8W 11-02 15:30
PROVIDERS: ADMIT Surgery Vascular Surgery; ATTEND Internal Medicine
PROC: 067G3ZZ Dilation of Left External Iliac Vein, Percutaneous Approach (ICD-10-PCS; 2023-10-27)
PROC: 06CN3ZZ Extirpation of Matter from Left Femoral Vein, Percutaneous Approach (ICD-10-PCS; 2023-10-27)
PROC: 067N3ZZ Dilation of Left Femoral Vein, Percutaneous Approach (ICD-10-PCS; 2023-10-27)
PROC: B50CYZZ Plain Radiography of Left Lower Extremity Veins using Other Contrast (ICD-10-PCS; 2023-10-27)
PROC: 3E03317 Introduction of Other Thrombolytic into Peripheral Vein, Percutaneous Approach (ICD-10-PCS; 2023-10-27)
PROC: 06CG3ZZ Extirpation of Matter from Left External Iliac Vein, Percutaneous Approach (ICD-10-PCS; principal; 2023-10-27 10:00)
DX: I82.422 Acute embolism and thrombosis of left iliac vein (principal); N17.0 Acute kidney failure with tubular necrosis; I82.412 Acute embolism and thrombosis of left femoral vein; G25.81 Restless legs syndrome; I87.8 Other specified disorders of veins; R07.89 Other chest pain; I10 Essential (primary) hypertension; E87.70 Fluid overload, unspecified; E66.9 Obesity, unspecified; Z68.35 Body mass index [BMI] 35.0-35.9, adult; M79.605 Pain in left leg; R09.02 Hypoxemia; R76.8 Other specified abnormal immunological findings in serum; N99.0 Postprocedural (acute) (chronic) kidney failure; Y83.8 Other surgical procedures as the cause of abnormal reaction of the patient, or of later complication, without mention of misadventure at the time of the procedure
CPT/HCPCS: 36415; 71045-TC-FY; 76000-TC-FY; 76775-TC; 80048; 80053; 81003; 82436; 82550; 82570; 83516; 83520; 83735; 83874; 84100; 84133; 84155; 84156; 84165; 84300; 84484; 85025; 85027; 85610; 85613; 85730; 85732; 86038; 86160; 86225; 86256; 86850; 86900; 86901; 87086; 93005; 93010; 93306-TC; 93970-TC; 93971-TC; 94010; 94640; 94760; C1725; C1897; J0131; J1644; J2997; Q0162

== ENCOUNTER 2023-12-07 04:15 | Inpatient (IN) | payer OTHER ==
[2023-12-07] MEDS ORDERED: MIDAZOLAM HCL 2 MG/2 ML SINGLE DOSE VIAL ONE (11:49)
[2023-12-07] MEDS ORDERED: PROPOFOL 20 ML ONE ×5 (11:49→13:50)
[2023-12-07] MEDS ORDERED: LIDOCAINE HCL 1%, 10 MG/ML (20ML VIAL) ONE (11:51)
[2023-12-07] MEDS ORDERED: HEPARIN NA (PORCINE) 5,000 UNITS/ML 1ML VIAL ONE ×2 (11:51→12:58)
[2023-12-07] MEDS: ceFAZolin SODIUM 1 GM VIAL IVPB ONE (12:32)
[2023-12-07] MEDS: LIDOCAINE HCL 1%, 10 MG/ML (20ML VIAL) NR ONE ×2 (12:39)
[2023-12-07] MEDS ORDERED: DEXAMETHASONE SOD PHOSPHATE 4 MG/1 ML VIAL ONE ×2 (12:51)
[2023-12-07] MEDS ORDERED: ONDANSETRON 4 MG/2 ML VIAL ONE ×2 (12:51)
[2023-12-07 13:16] VITALS: BMI 34.9
[2023-12-07] MEDS ORDERED: LACTATED RINGERS SOLUTION 1,000 ML/1,000 ML INFUS.BAG IV SCH (14:45)
[2023-12-07] MEDS ORDERED: ONDANSETRON 4 MG/2 ML VIAL IVPUSH PRN (14:49)
[2023-12-07 15:02] LABS: HEMATOCRIT 31.2 % (32.4-45.2); HEMOGLOBIN 10.5 GM/dL (10.7-15.3); MCH 29.4 pg (25.7-33.7); MCHC 33.5 g/dl (32.0-36.0); MEAN CELL VOLUME 87.8 fl (80-96); MEAN PLT VOLUME 8.7 fl (7.5-11.1); PLATELET COUNT 357 10^3/uL (134-434); RBC 3.56 M/mm3 (3.60-5.2); RDW 13.4 % (11.6-15.6); WHITE BLOOD COUNT 11.4 K/mm3 (4.0-10.0)
[2023-12-07 15:42] LABS: POTASSIUM 4.2 mmol/L (3.5-5.1)
[2023-12-07 15:43] LABS: BLOOD UREA NITROGEN 22.1 mg/dL (7-18); CALCIUM 9.8 mg/dL (8.5-10.1)
[2023-12-07 15:47] LABS: CREATININE 1.2 mg/dL (0.55-1.3)
[2023-12-07] MEDS: LACTATED RINGERS SOLUTION 1,000 ML IV SCH (16:07)
[2023-12-07] MEDS: oxyCODONE HCL 5 MG TABLET PO PRN (18:29)
[2023-12-07] MEDS: ACETAMINOPHEN 325 MG TABLET (FP) PO PRN (18:38)
[2023-12-07 19:29] VITALS: RESP 18
[2023-12-07] MEDS: ENOXAPARIN NA (PORCINE) 80 MG/0.8 ML DISP.SYRIN SQ SCH (21:25)
[2023-12-08 08:13] VITALS: BP 115/72; PULSE 80; TEMP 98.2
[2023-12-08] MEDS: amLODIPine BESYLATE 10 MG TABLET (FP) PO SCH (09:22)
[2023-12-08] MEDS: ENOXAPARIN NA (PORCINE) 80 MG/0.8 ML DISP.SYRIN SQ SCH (09:22)
== END 2023-12-08 14:15 | disposition home or self-care (01) | DRG 272 ==
LOC: J2C 04:15 → J6S 16:54
PROVIDERS: ADMIT Surgery Vascular Surgery; ATTEND Surgery Vascular Surgery
PROC: 04CN3ZZ Extirpation of Matter from Left Popliteal Artery, Percutaneous Approach (ICD-10-PCS; 2023-12-07)
PROC: 047D3Z1 Dilation of Left Common Iliac Artery using Drug-Coated Balloon, Percutaneous Approach (ICD-10-PCS; 2023-12-07)
PROC: 047J3Z1 Dilation of Left External Iliac Artery using Drug-Coated Balloon, Percutaneous Approach (ICD-10-PCS; 2023-12-07)
PROC: 3E05317 Introduction of Other Thrombolytic into Peripheral Artery, Percutaneous Approach (ICD-10-PCS; 2023-12-07)
PROC: B51CZZZ Fluoroscopy of Left Lower Extremity Veins (ICD-10-PCS; 2023-12-07)
PROC: 04CL3ZZ Extirpation of Matter from Left Femoral Artery, Percutaneous Approach (ICD-10-PCS; principal; 2023-12-07 12:00)
DX: I82.412 Acute embolism and thrombosis of left femoral vein (principal); I77.1 Stricture of artery
CPT/HCPCS: 36415; 76000-TC-FY; 80048; 85027; 86850; 86900; 86901; 94760; C1757; C1769; J1644